=== PATIENT | male | born 1940 | race Hispanic/Latino ===

== ENCOUNTER 2021-09-29 22:39 | Emergency (ER) | payer MEDICARE, OTHER ==
[~2021-09-29] VITALS: Ht 162.6 cm; Wt 83.9 kg
[2021-09-29] MEDS ORDERED: Clindamycin INJ 300 MG/50 ML 50 ML IV SCH (23:08)
[2021-09-29] MEDS ORDERED: CLEOCIN HCL300 MG PO (23:35)
[2021-09-29] MEDS ORDERED: Clindamycin INJ 300 MG/50 ML 50 ML IV ONE (23:52)
[2021-09-30 03:15] VITALS: BP 133/66
== END 2021-09-30 03:15 | disposition home or self-care (01) ==
LOC: FSED 22:53
DX: L03.116 Cellulitis of left lower limb (principal); I82.812 Embolism and thrombosis of superficial veins of left lower extremity; I10 Essential (primary) hypertension
CPT/HCPCS: 80053; 85025; 93971; 99283